=== PATIENT | male | born 1965 | race African-American/Black ===

== ENCOUNTER 2016-07-16 18:48 | Emergency (ER) | payer OTHER ==
[2016-07-16 19:46] VITALS: BP 131/88; PULSE 78; RESP 18; TEMP 97.8
--- NOTE | 2016-07-17 04:18 | ED ---
Extremity Problem HPI - General Chief complaint: Extremity Problem,Nontraumatic Stated complaint: Swollen Leg/ Heart Patient Time Seen by Provider: 07/16/16 19:50 Source: patient, RN notes reviewed, old records reviewed Mode of arrival: ambulatory Limitations: no limitations - History of Present Illness Initial comments: This is a 50-year-old male presents emergency Department chief complaint of left lower leg swelling. Patient reports it's been painful for the past 2 days. Patient states that it's mainly over the back of the calf. Patient reports no history of blood clots. He is a smoker. He does admit to chronic alcohol use. Patient reports that he's had 1 stent in his heart. He states that he moved here from [place] 3 years ago. Patient does not have a primary care provider in this area. Patient denies any current chest pain or shortness of breath. Patient reports occasionally while sleeping at night and he'll feel as if he doesn't get enough oxygen and wakes up and his heart starts to race.Patient denies any recent fever, chills, shortness of breath, chest pain, back pain, abdominal pain, nausea vomiting, numbness or tingling, dysuria or hematuria, constipation or diarrhea, headaches or visual changes, or any other current symptoms - Related Data Home Medications Medication Instructions Recorded Confirmed Tetrahydrozoline 0.05% Ophth 1 drop BOTH EYES QID PRN 07/16/16 07/16/16 [Visine Eye Drops] Allergies Allergy/AdvReac Type Severity Reaction Status Date / Time No Known Allergies Allergy Verified 07/16/16 20:10 Review of Systems ROS Statement: Those systems with pertinent positive or pertinent negative responses have been documented in the HPI. ROS Other: All systems not noted in ROS Statement are negative. Past Medical History Past Medical History: GI Bleed, Hypertension, Prostate Disorder Additional Past Medical History / Comment(s): Colon CA History of Any Multi-Drug Resistant Organisms: None Reported Past Surgical History: Unable to Obtain Past Psychological History: No Psychological Hx Reported Smoking Status: Current every day smoker Past Alcohol Use History: Daily Past Drug Use History: Marijuana General Exam - General Exam Comments Initial Comments: Pleasant 50-year-old male. No acute distress. Limitations: no limitations General appearance: alert, in no apparent distress Head exam: Present: atraumatic, normocephalic, normal inspection Eye exam: Present: normal appearance, PERRL, EOMI. Absent: scleral icterus, conjunctival injection, periorbital swelling ENT exam: Present: normal exam, mucous membranes moist Neck exam: Present: normal inspection. Absent: tenderness, meningismus, lymphadenopathy Respiratory exam: Present: normal lung sounds bilaterally. Absent: respiratory distress, wheezes, rales, rhonchi, stridor Cardiovascular Exam: Present: regular rate, normal rhythm, normal heart sounds. Absent: systolic murmur, diastolic murmur, rubs, gallop, clicks GI/Abdominal exam: Present: soft Extremities exam: Present: normal inspection, full ROM, normal capillary refill , calf tenderness (Left posterior calf tenderness, swelling and warmth.). Absent: tenderness, pedal edema, joint swelling Back exam: Present: normal inspection Neurological exam: Present: alert, oriented X3, CN II-XII intact Psychiatric exam: Present: normal affect, normal mood Skin exam: Present: warm, dry, intact, normal color. Absent: rash Course Vital Signs 07/16/16 19:42 Temperature 97.8 F Pulse Rate 78 Respiratory 18 Rate Blood Pressure 131/88 O2 Sat by Pulse 97 Oximetry Medical Decision Making - Medical Decision Making 50-year-old male presents emergency Department with chief complaint of left calf swelling, pain, and warmth for the past 2 days. Patient was about to receive Doppler ultrasound. When ultrasound came to get the patient that he is not there. With did search the emergency department for the patient however he had left. Patient did not inform anybody that he was leaving. Patient will be discharged as AMA. Disposition Clinical Impression: Pain of left calf Disposition: Left Against Medical Advice Referrals: None,Stated [Primary Care Provider] - 1-2 days Time of Disposition: 20:18
== END 2016-07-16 21:11 | disposition left against medical advice (07) ==
LOC: EC 18:48
DX: M79.662 Pain in left lower leg (principal); M79.89 Other specified soft tissue disorders; F17.200 Nicotine dependence, unspecified, uncomplicated; Z85.038 Personal history of other malignant neoplasm of large intestine
CPT/HCPCS: 99283